=== PATIENT | female | born 1960 | race Caucasian/White ===

== ENCOUNTER 2017-03-25 10:44 | Emergency (ER) | payer OTHER ==
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
[2017-03-25 12:40] VITALS: BP 128/80; PULSE 69; RESP 16; TEMP 98.1; O2SAT 98
== END 2017-03-25 12:40 | disposition home or self-care (01) ==
DX: S39.012A Strain of muscle, fascia and tendon of lower back, initial encounter (principal); S16.1XXA Strain of muscle, fascia and tendon at neck level, initial encounter; V87.7XXA Person injured in collision between other specified motor vehicles (traffic), initial encounter; Y92.410 Unspecified street and highway as the place of occurrence of the external cause